=== PATIENT | male | born 1960 | race Caucasian/White ===

== ENCOUNTER 2017-07-08 12:50 | Inpatient (IN) | payer SELFPAY ==
[2017-07-08] MEDS ORDERED: ACETAMINOPHEN 325 MG TABLET. PO (13:30)
[2017-07-08] MEDS ORDERED: MAGNESIUM HYDROXIDE 2,400 MG/30 ML ORAL.SUSP. PO (13:30)
[2017-07-08] MEDS ORDERED: ONDANSETRON PF 4 MG/2 ML VIAL. IV (13:30)
[2017-07-08] MEDS ORDERED: MORPHINE SULFATE 2 MG/ML DISP.SYRIN. IV (13:30)
[2017-07-08] MEDS ORDERED: BISACODYL 10 MG SUPP.RECT. PR (13:30)
[2017-07-08 14:57] LABS: PROTHROMBIN TIME PATIENT 12.7 SEC (11.7-14.0)
[2017-07-08 14:58] LABS: UNFRACTIONATED HEPARIN TESTING 0.16 IU/mL (0.30-0.70)
[2017-07-08] MEDS ORDERED: NICOTINE 21MG PATCH. TD (15:00)
[2017-07-08] MEDS ORDERED: NITROGLYCERIN 0.1MG/HR PATCH. TD (16:00)
[2017-07-08] MEDS: ALPRAZolam 0.25 MG TABLET PO (16:13)
[2017-07-08] MEDS: NITROGLYCERIN SUBLINGUAL 0.4 MG BOTTLE OF 25. SL (16:15)
[2017-07-08] MEDS: HEPARIN for IV BOLUS 10,000 UNIT/10 ML VIAL. IV (16:16)
[2017-07-08] MEDS: HEPARIN 25,000UTS/500ML PREMIX 500 ML IV (16:17)
[2017-07-08] MEDS: DOCUSATE SODIUM 100 MG CAPSULE. PO (20:43)
[2017-07-08 22:45] LABS: UNFRACTIONATED HEPARIN TESTING 0.41 IU/mL (0.30-0.70)
[2017-07-09] MEDS: oxyCODONE IR 5 MG TABLET PO (03:09)
[2017-07-09 05:05] LABS: ADD MAN DIFF? NO
[2017-07-09 05:42] LABS: BASO % 0 % (0-3); EOS # 0.2 x10^3/uL (0.0-0.7); EOS % 3 % (0-3); HEMATOCRIT 45.1 % (39.0-53.0); HEMOGLOBIN 15.5 g/dL (13.0-17.5); LYMPH # 2.1 x10^3/uL (1.0-4.8); LYMPH % 33 % (24-48); MEAN CORPUSCULAR HEMOGLOBIN 33 pg (25-35); MEAN CORPUSCULAR HGB CONC 34 g/dL (31-37); MEAN CORPUSCULAR VOLUME 96 fL (79-100); MONO # 0.6 x10^3/uL (0.0-1.1); MONO % 9 % (0-9); NEUT # 3.5 x10^3uL (1.8-7.7); NEUT % 55 % (31-73); PLATELET COUNT 168 x10^3/uL (140-400); RED BLOOD COUNT 4.69 x10^6/uL (4.30-5.70); RED CELL DISTRIBUTION WIDTH 12.7 % (11.5-14.5); WHITE BLOOD COUNT 6.4 x10^3/uL (4.0-11.0)
[2017-07-09 06:02] LABS: UNFRACTIONATED HEPARIN TESTING 0.41 IU/mL (0.30-0.70)
[2017-07-09] MEDS: FLU VACC QS2017-18 (36MOS+)/PF 0.5 ML SYRINGE. VAX IM (06:28)
[2017-07-09] MEDS: DOCUSATE SODIUM 100 MG CAPSULE. PO ×2 (08:46→20:30)
[2017-07-09 08:57] LABS: PROTHROMBIN TIME PATIENT 12.1 SEC (11.7-14.0)
[2017-07-09] MEDS: ANTI-COAG MONITOR BY PHARMACY. MC (14:49)
[2017-07-09 18:18] LABS: ALBUMIN 3.7 g/dL (3.4-5.0); ALBUMIN/GLOBULIN RATIO 1.2 (1.0-1.7); ALK PHOS 54 U/L (46-116); ALT (SGPT) 23 U/L (16-63); ANION GAP 13 (6-14); AST (SGOT) 14 U/L (15-37); BLOOD UREA NITROGEN 15 mg/dL (8-26); BUN/CREATININE RATIO 17 (6-20); CALCIUM 8.4 mg/dL (8.5-10.1); CARBON DIOXIDE 26 mmol/L (21-32); CHLORIDE 104 mmol/L (98-107); CREATININE 0.9 mg/dL (0.7-1.3); GFR 87.3; GLUCOSE 99 mg/dL (70-99); MAGNESIUM 2.2 mg/dL (1.8-2.4); PHOSPHORUS 3.7 mg/dL (2.6-4.7); POTASSIUM 3.7 mmol/L (3.5-5.1); SODIUM 143 mmol/L (136-145); TOTAL BILIRUBIN 0.3 mg/dL (0.2-1.0); TOTAL PROTEIN 6.8 g/dL (6.4-8.2)
[2017-07-09] MEDS: HEPARIN 25,000UTS/500ML PREMIX 500 ML IV (22:32)
[2017-07-10] MEDS: NITROGLYCERIN SUBLINGUAL 0.4 MG BOTTLE OF 25. SL (03:07)
[2017-07-10] MEDS: IV NORMAL SALINE 1000ML BAG 1,000 ML IV (06:24)
[2017-07-10 06:33] LABS: UNFRACTIONATED HEPARIN TESTING 0.37 IU/mL (0.30-0.70)
[2017-07-10 06:48] LABS: CHOLESTEROL 170 mg/dL (0-200); HDLC 52 mg/dL (40-60); LDLC 100 mg/dL (0-100); NON-HDL CHOLESTEROL 118 mg/dL (0-129); TRIGLYCERIDES 90 mg/dL (0-150); VLDLC 18 mg/dL (0-40)
[2017-07-10 06:49] LABS: CHOLESTEROL/HDL RATIO 3.3
[2017-07-10] MEDS ORDERED: IODIXANOL 320 MG/ML 100 ML VIAL. (07:20)
[2017-07-10] MEDS ORDERED: LIDOCAINE 2% 20 ML VIAL. (07:20)
[2017-07-10] MEDS ORDERED: HEPARIN for IV BOLUS 10,000 UNIT/10 ML VIAL. (07:43)
[2017-07-10] MEDS ORDERED: NITROGLYCERIN 200 MCG/2 ML SYRINGE FOR CATH/VASC LAB. (07:43)
[2017-07-10] MEDS ORDERED: VERAPAMIL 5 MG/2 ML VIAL. (07:43)
[2017-07-10] MEDS ORDERED: fentaNYL PF VIAL 100 MCG/2 ML VIAL (07:43)
[2017-07-10] MEDS ORDERED: MIDAZOLAM HCL/PF 5 MG/5 ML VIAL. (07:44)
[2017-07-10] MEDS: IV 1/2 NORMAL SALINE 1,000 ML IV (08:59)
[2017-07-10] MEDS ORDERED: NITROGLYCERIN SUBLINGUAL 0.4 MG BOTTLE OF 25. SL (09:00)
[2017-07-10] MEDS: DOCUSATE SODIUM 100 MG CAPSULE. PO (09:00)
[2017-07-10] MEDS: HEPARIN for IV BOLUS 10,000 UNIT/10 ML VIAL. IV (09:03)
[2017-07-10] MEDS: HEPARIN for IV BOLUS 10,000 UNIT/10 ML VIAL. IART (09:03)
[2017-07-10] MEDS: VERAPAMIL 5 MG/2 ML VIAL. IART (09:04)
[2017-07-10] MEDS: MIDAZOLAM HCL/PF 5 MG/5 ML VIAL. IV (09:05)
[2017-07-10] MEDS: fentaNYL PF VIAL 100 MCG/2 ML VIAL IV (09:06)
[2017-07-10] MEDS: NITROGLYCERIN 200 MCG/2 ML SYRINGE FOR CATH/VASC LAB. IART (09:06)
[2017-07-10] MEDS: LIDOCAINE 2% 20 ML VIAL. IJ (09:07)
[2017-07-10] MEDS: IODIXANOL 320 MG/ML 100 ML VIAL. IART (09:08)
[2017-07-10] MEDS: ANTI-COAG MONITOR BY PHARMACY. MC (13:25)
== END 2017-07-10 16:45 | disposition home or self-care (01) | DRG 287 ==
LOC: 2 NORTH 12:50
PROC: 4A023N7 Measurement of Cardiac Sampling and Pressure, Left Heart, Percutaneous Approach (ICD-10-PCS; principal; 2017-07-10)
PROC: B2151ZZ Fluoroscopy of Left Heart using Low Osmolar Contrast (ICD-10-PCS; 2017-07-10)
PROC: B2111ZZ Fluoroscopy of Multiple Coronary Arteries using Low Osmolar Contrast (ICD-10-PCS; 2017-07-10)
DX: I20.0 Unstable angina (principal); E66.9 Obesity, unspecified; Z82.49 Family history of ischemic heart disease and other diseases of the circulatory system; Z95.1 Presence of aortocoronary bypass graft; Z68.36 Body mass index [BMI] 36.0-36.9, adult
CPT/HCPCS: 36415; 80053; 80061; 83735; 84100; 85025; 85520; 85610; 90686; 93458; 93571; 99151; 99153; C1769; C1887; C1892; J1644; J2250; J3010; J3490; J7030